=== PATIENT | female | born 1995 | race Caucasian/White ===

== ENCOUNTER 2016-11-07 22:25 | Emergency (ER) | payer OTHER ==
[~2016-11-07] VITALS: Ht 152.4 cm; Wt 85.7 kg
[2016-11-08 01:16] LABS: Urine Bilirubin Negative (Negative); Urine Blood Negative /uL (Negative); Urine Color Yellow (Yellow); Urine Glucose Normal (Normal); Urine Ketone Negative (Negative); Urine Mucus FEW (None Seen); Urine Nitrite Negative (Negative); Urine RBC 7 /hpf (0 - 4); Urine Squamous Epithelial Cell FEW /hpf (<5); Urine Urobilinogen Normal (Negative); Urine pH 6.5 (5.0-8.0)
[2016-11-08 07:52] VITALS: BP 126/69
[2016-11-08] MEDS ORDERED: cefTRIAXone SOD 1,000 MG VL IM ONE (08:30)
[2016-11-08] MEDS ORDERED: PHENAZOPYRIDINE HCL 100 MG TAB PO ONE (08:30)
== END 2016-11-08 08:57 | disposition home or self-care (01) ==
LOC: ER 22:50
DX: N39.0 Urinary tract infection, site not specified (principal)
CPT/HCPCS: 36415; 81001; 84702; 93005; 96372; 99285; G0434; J0696